=== PATIENT | male | born 1955 | race Caucasian/White ===

== ENCOUNTER 2017-07-10 12:05 | Emergency (ER) | payer OTHER ==
[~2017-07-10] VITALS: Ht 182.9 cm; Wt 59.0 kg
[~2017-07-10 12:05] MED LIST: FOLIC ACID 1 MG PO; PRILOSEC 20MG C20 MG PO; PROAIR HFA0.09 MG/Ac INH; SPIRIVA18 MCG INH; SYMBICORT 16010.2 GM INH; VITAMIN B1100 MG PO
--- NOTE | 2017-07-10 12:48 | ED DYSPNEA/ASTHMA COMPLAINT ---
History of Present Illness General Chief Complaint: Dyspnea (COPD, CHF, Other) Stated Complaint: PER PT"I THINK I HAVE PNA" SOB,COUGH Source: patient Exam Limitations: no limitations Vital Signs & Intake/Output Vital Signs & Intake/Output Vital Signs Date Time Temp Pulse Resp B/P B/P Pulse O2 O2 Flow FiO2 Mean Ox Delivery Rate 07/10 1425 98 07/10 1357 98 Room Air 07/10 1210 97.8 98 20 126/85 98 Room Air Allergies Coded Allergies: NO KNOWN ALLERGIES (07/08/13) Reconcile Medications Albuterol Sulfate (Proair Hfa) 0.09 MG/Actuation SCHUYLER 1 INH INH BID PRN COPD Azithromycin (Zithromax) 250 MG TABLET 1 DP PO AD BRONCHITIS 2 the first day followed by 1 for days 2-5 Benzonatate (Tessalon Perle) 100 MG CAPSULE 1 CAP PO TID PRN COUGH Budesonide/Formoterol Fumara (Symbicort 160-4.5 Mcg Inhaler) 160 MCG/4.5 MCG PUF 2 PUF INH BID COPD (Reported) Folic Acid 1 MG TABLET 1 MG PO DAILY SUPPLEMENT Omeprazole (Prilosec) 20 MG CAPSULE.DR 40 MG PO DAILY AC GERD Prednisone 10 MG TABLET 1 TAB PO DAILY BRONCHITIS 4 TABS PO X 3 DAYS, 3 TABS PO X 3 DAYS, 2 TABS PO X 3 DAYS, 1 TAB PO X 3 DAYS Thiamine (Vitamin B1) 100 MG TAB 100 MG PO DAILY SUPPLEMENT Tiotropium Maury (Spiriva) 18 MCG CAP.W.DEV 1 CAP INH DAILY COPD (Reported) Triage Note: PT C/O PRODUCTIVE COUGH WITH GREENISH SPUTUM X 3 DAYS. PT STATES HX OF PNEUMONIA. +SOB WHICH IS NORMAL FOR HIM. 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 PT DENIES CP Triage Nurses Notes Reviewed? yes Onset: Gradual Duration: day(s): (5) Timing: recent history Severity: moderate Activities at Onset: none Prior Episodes/Possible Cause: occasional episodes HPI: Patient is a 62-year-old male, current daily smoker presenting to the emergency department with chief complaint of upper respiratory congestion, intermittent dry cough that is been going on for the past 3 days. Patient does admit to occasional sputum production which varies in color from clear and yellow to green. No fevers or chills. Reports malaise. Does not use oxygen at home. Has been using inhalers without relief. He tried calling his primary care physician who was poked stay he decided to come into the emergency department for evaluation. Denies abdominal pain. Denies chest pain or palpitations. Shortness of breath only present with coughing. Denies any change in bowel or bladder habits. (Arlette Flower) Past History Travel History Traveled to [place] past 21 day No Medical History Any Pertinent Medical History? see below for history Neurological: ANXIETY Respiratory: COPD Psychiatric: ETOH History of MRSA: No History of VRE: No History of CDIFF: No Surgical History Surgical History: non-contributory Psychosocial History Who do you live with Patient/Self Services at Home None What is your primary language Nigerian Tobacco Use: Quit <30 days ago ETOH Use: denies use Illicit Drug Use: denies illicit drug use Family History Family History, If Any: Relation not specified for: No family history of disorders Hx Contributory? No (Arlette Flower) Review of Systems Review of Systems Constitutional: Reports: no symptoms. Comments Review of systems: See HPI, All other systems negative. Constitutional, no chills fever or weight loss HEENT: No visual changes no sore throat Cardiovascular: No chest pain ,palpitation , orthopnea or ankle swelling Skin, no jaundice no rashes Respiratory: No hemoptysis GI: No nausea no vomiting : No dysuria No hematuria Muscle skeletal: no back pain, no neck pain, Neurologic: No numbness no confusion Psych: No stress anxiety or depression,. Heme/endocrine: No bruising no bleeding no polyuria or polydipsia Immunology: No splenectomy or history of AIDS (Arlette Flower) Physical Exam Physical Exam General Appearance: well developed/nourished, no apparent distress, alert, awake , comfortable Respiratory: SIGNIFICANTLY DIMINISHED LUNG SOUNDS BILATERALLY. Comments: Well-developed well-nourished person in no acute distress HEENT: Pupils equally round and reactive to light and accommodation. Nose is atraumatic. External auditory canal and Tympanic membranes clear. Pharynx normal. No swelling or edema. Neck: Normal inspection Back: Nontender Cardiovascular: Regular rate and rhythms no murmurs rubs or gallops, normal JVP Respiratory: Chest nontender. No respiratory distress.breath sounds are significantly diminished to auscultation bilaterally Abdomen: Soft, nontender nondistended, no appreciable organomegaly. Normal bowel sounds. No ascites Extremity: No edema Neuro: Alert oriented x3. Skin: No appreciable rash on exposed skin, skin is warm and dry. Psych: Mood and affect is normal, memory and judgment is normal. Core Measures ACS in differential dx? No CVA/TIA Diagnosis No Sepsis Present: No Sepsis Focused Exam Completed? No (Staci BOTELLO,Arlette) Progress Differential Diagnosis: bronchitis, costochondritis, COPD, pneumonia Plan of Care: Orders Procedure Date/time Status AEROSOL (GEN) 07/10 1408 Complete EKG 07/10 121 Active Patient feeling improved after breathing treatment and prednisone. EKG is normal sinus. Patient not having any chest pain. Patient still smoking. Educated on smoking cessation. Likely exacerbation of chronic bronchitis. Patient will be treated with Z-Alonzo, prednisone taper and Tessalon Perles. 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 Patient nontoxic. Diagnostic Imaging: Viewed by Me: Radiology Read. Discussed w/RAD: Radiology Read. Radiology Impression: PATIENT: NANCY CUEVA JR PRESENT AGE: 62 PATIENT ACCOUNT NO: [id number] : 55 LOCATION: [facility] ORDERING PHYSICIAN: Arlette BOTELLO SERVICE DATE: 07/10/17 EXAM TYPE: RAD - XRY-CHEST XRAY, TWO VIEWS EXAMINATION: XR CHEST CLINICAL INFORMATION : Productive cough. COMPARISON: Chest x-ray 12/01/2014. CT scan of the chest 01/2017. TECHNIQUE: Frontal and lateral views of the chest were obtained. FINDINGS: The lung ramírez are hyperexpanded bilaterally with flattening of the hemidiaphragms and significant retrosternal air trapping, consistent with COPD. There are emphysematous changes in the upper lung zones bilaterally. The cardiac silhouette is normal in size. The aorta is unremarkable. There are no pleural effusions or pneumothoraces. The central pulmonary vasculature is normal. There are no acute osseous findings. IMPRESSION: 1. There are no acute cardiopulmonary findings. 2. There are emphysematous changes and there is evidence of COPD. DICTATED BY: Shiv Caraballo MD DATE/TIME DICTATED:07/10/171346 CLINICAL STATISTICS MANAGER :ROCKY DATE/TIME TRANSCRIBED:07/10/171346 CONFIDENTIAL, DO NOT COPY WITHOUT APPROPRIATE AUTHORIZATION. Initial ED EKG: NSR (75 BPM) (Arlette Flower) Departure Departure Time of Disposition: 1424 Disposition: HOME OR SELF CARE Condition: Stable Clinical Impression Primary Impression: Bronchitis Referrals: Beverly Garcia APRN (PCP/Family) Additional Instructions: Follow-up with your primary care physician in the next 5-7 days. Return for worsening symptoms or concerns. Take azithromycin as prescribed to help with bronchitis. Take prednisone taper as prescribed and take Tessalon Perles as prescribed. Continue using previously prescribed inhalers as directed. Departure Forms: Customer Survey General Discharge Information Prescriptions: Current Visit Scripts Azithromycin (Zithromax) 1 DP PO AD #6 TAB 2 the first day followed by 1 for days 2-5 Prednisone 1 TAB PO DAILY #30 TAB 4 TABS PO X 3 DAYS, 3 TABS PO X 3 DAYS, 2 TABS PO X 3 DAYS, 1 TAB PO X 3 DAYS Benzonatate (Tessalon Perle) 1 CAP PO TID PRN COUGH #30 CAP (Arlette Flower) PA/HUMAN RESOURCES ADMINISTRATOR Co-Sign Statement Statement: ED Attending supervision documentation- [] I saw and evaluated the patient. I have also reviewed all the pertinent lab results and diagnostic results. I agree with the findings and the plan of care as documented in the PA's/HUMAN RESOURCES ADMINISTRATOR's documentation. [X] I have reviewed the ED Record and agree with the PA's/HUMAN RESOURCES ADMINISTRATOR's documentation. [] Additions or exceptions (if any) to the PAs/HUMAN RESOURCES ADMINISTRATOR's note and plan are summarized below: [] (Doe ROJAS,Marcell Dey) Critical Care Note Critical Care Note Critical Care Time: non-applicable (Arlette Flower)
--- NOTE | 2017-07-10 13:55 | RADIOLOGY REPORT ---
EXAMINATION: XR CHEST CLINICAL INFORMATION: Productive cough. COMPARISON: Chest x-ray 12/01/2014. CT scan of the chest 01/11/2017. TECHNIQUE: Frontal and lateral views of the chest were obtained. FINDINGS: The lung ramírez are hyperexpanded bilaterally with flattening of the hemidiaphragms and significant retrosternal air trapping, consistent with COPD. There are emphysematous changes in the upper lung zones bilaterally. The cardiac silhouette is normal in size. The aorta is unremarkable. There are no pleural effusions or pneumothoraces. The central pulmonary vasculature is normal. There are no acute osseous findings. IMPRESSION: 1. There are no acute cardiopulmonary findings. 2. There are emphysematous changes and there is evidence of COPD.
[2017-07-10] MEDS ORDERED: PREDNISONE10 M2 PO (14:27)
[2017-07-10] MEDS ORDERED: ZITHROMAX250 M2 PO (14:27)
[2017-07-10] MEDS ORDERED: TESSALON PERLE100 M1 PO (14:27)
[2017-07-10] MEDS ORDERED: PROAIR HFA8.5 GM INH (14:43)
[2017-07-10] MEDS ORDERED: ATORVASTATIN CA10 M1 PO (14:43)
[2017-07-10] MEDS ORDERED: ALBUTEROL2.5 MG/3 M INH/SOL (14:44)
[2017-07-10 14:48] VITALS: BP 126/70
== END 2017-07-10 15:10 ==
LOC: ERH 12:05
DX: J40 Bronchitis, not specified as acute or chronic (principal); F17.210 Nicotine dependence, cigarettes, uncomplicated
CPT/HCPCS: 1263; 71046; 93005; 93010